=== PATIENT | female | born 1965 | race Two or more races ===

== ENCOUNTER 2016-09-02 16:34 | Emergency (ER) | payer MEDICAID ==
[~2016-09-02] VITALS: Ht 157.5 cm; Wt 83.9 kg
[2016-09-02 16:50] VITALS: BP 139/85
[2016-09-02] MEDS ORDERED: AMOXICILLIN500 MG ORAL (17:04)
[2016-09-02] MEDS ORDERED: IBUPROFEN600 MG ORAL (17:04)
[2016-09-02 17:11] VITALS: BP 139/85
--- NOTE | 2016-09-02 17:30 | Emergency Room Report ---
History of Present Illness General Chief Complaint: Sore Throat Source: Patient Present Illness HPI The patient is a 51-year-old female presenting with sore throat and fever which began 4 days prior. The patient does admit that she recently had a contact with her brother who had similar symptoms. She denies recent travel. The patient has tried NyQuil which has not helped. The patient describes the pain as an 8/ 10 scratching sensation of the throat and is worse with swallowing. The patient denies any other symptoms including shortness of breath, chest pain , rash, headache, dizziness Patient History Past Medical History: see triage record Pertinent Family History: none Last Menstrual Period: 2001 Now: No : 5 Para: 5 Reviewed Nursing Documentation: PMH: Agreed, PSxH: Agreed Nursing Documentation-PMH Past Medical History: No History, Except For Review of Systems All Other Systems: negative except mentioned in HPI Physical Exam Vital Signs Date Time Temp Pulse Resp B/P Pulse Ox O2 Delivery O2 Flow Rate FiO2 09/02/16 16:39 97 20 139/85 98 Room Air 09/02/16 16:50 98.5 Sp02 EP Interpretation: reviewed, normal General Appearance: no apparent distress, alert, GCS 15, non-toxic Head: normocephalic, atraumatic Eyes: bilateral eye PERRL, bilateral eye normal inspection ENT: hearing grossly normal, no angioedema, normal voice, TMs + canals normal, uvula midline, tonsillar swelling, pharyngeal erythema, tonsillar exudate Neck: full range of motion, supple/symm/no masses Respiratory: chest non-tender, lungs clear, normal breath sounds, no wheezing, speaking full sentences Cardiovascular #1: regular rate, rhythm, no edema Gastrointestinal: normal bowel sounds, non tender, soft, non-distended, no guarding, no rebound Rectal: deferred Musculoskeletal: back normal, gait/station normal, normal range of motion, non- tender Neurologic: alert, oriented x3, responsive, motor strength/tone normal, sensory intact, speech normal Psychiatric: judgement/insight normal, memory normal, mood/affect normal, no suicidal/homicidal ideation Skin: normal color, no rash, warm/dry, well hydrated Medical Decision Making PA Attestation Dr. Oneill is my supervising physician. Patient management was discussed with my supervising physician Diagnostic Impression: Primary Impression: Pharyngitis, acute ER Course The patient is a 51-year-old female presenting with sore throat and fever which began 4 days prior. Differential diagnosis include but not limited to pharyngitis, sinusitis, AOM, bronchitis, PNA Physical exam: Vitals within normal limits. Afebrile. No apparent distress. HEENT: There is bilateral tonsillar edema, erythema, and white exudate. Positive cervical lymphadenopathy. Otherwise exam unremarkable Lungs are clear to auscultation bilaterally The patient will be discharged home and is given a prescription for amoxicillin. ER precautions are given Last Vital Signs Date Time Temp Pulse Resp B/P Pulse Ox O2 Delivery O2 Flow Rate FiO2 09/02/16 17:11 98.5 97 20 139/85 98 Room Air Status: improved Disposition: HOME, SELF-CARE Condition: Improved Scripts Amoxicillin* (AMOXIL*) 500 Mg Capsule 500 MG ORAL Q12HR, #20 CAP Prov: FRANCISCO J LECHUGA 09/02/16 Ibuprofen* (MOTRIN*) 600 Mg Tablet 600 MG ORAL Q8H Y for For Pain, #30 TAB 0 Refills Prov: FRANCISCO J LECHUGA 09/02/16 Referrals: [facility],REFERRING (PCP) Patient Instructions: Sore Throat Additional Instructions: I discussed my findings with the patient. All questions and concerns have been answered. Treatment and medication compliance have been addressed. I advised the patient that they need to follow up with PMD in 3-5 days. Return to ED if symptoms worsen, new symptoms arise, or if needed for any reason. Patient verbalized understanding of discharge instructions. FRANCISCO J LECHUGA Sep 02, 2016 17:30
== END 2016-09-02 17:12 | disposition home or self-care (01) ==
LOC: EMR 17:04
DX: J02.9 Acute pharyngitis, unspecified (principal)
CPT/HCPCS: 99282